=== PATIENT | male | born 1990 | race Two or more races ===

== ENCOUNTER 2016-09-29 20:28 | Emergency (ER) | payer OTHER ==
[~2016-09-29] VITALS: Ht 167.6 cm; Wt 72.6 kg
[2016-09-29 20:30] VITALS: BP 126/68
== END 2016-09-29 21:15 | disposition home or self-care (01) ==
LOC: ER 20:51
DX: F10.120 Alcohol abuse with intoxication, uncomplicated (principal); R11.10 Vomiting, unspecified; R45.1 Restlessness and agitation; R45.851 Suicidal ideations